=== PATIENT | male | born 1960 | race Caucasian/White ===

== ENCOUNTER → 2020-06-20 | Outpatient (CLI) | payer BC ==
--- NOTE | 2020-07-03 14:28 | REP ---
CAROTID DOPPLER ULTRASOUND CLINICAL: Symptoms related to atherosclerotic disease. TECHNIQUE: Real-time mccracken scale and color Doppler evaluation using linear high frequency transducer. FINDINGS: The bilateral carotid arteries demonstrates small minimal amounts of mixed atheromatous plaquing at the carotid bulbs. Normal laminar flow is appreciated without turbulence or evidence for stenosis. Arterial wave patterns are noted without significant spectral broadening. Normal flow direction noted to the bilateral vertebral arteries. PEAK FLOW VELOCITY ANALYSIS RIGHT LEFT ICA PSV 93.5 cm/s 68.6 cm/s ICA EDV 24.7 cm/s 14.7 cm/s ECA PSV 71.1 cm/s 77.5 cm/s CCA PSV 85.6 cm/s 70.4 cm/s ICA/CCA RATIO 1.09 0.97 IMPRESSION: Essentially normal age appropriate examination. Based on set standards, narrowing is in the normal/less than 50% range. MTDD
== END ==
LOC: M RAD 14:25
PROVIDERS: ATTEND Internal Medicine Cardiovascular Disease
DX: R09.89 Other specified symptoms and signs involving the circulatory and respiratory systems (principal); I73.9 Peripheral vascular disease, unspecified; G45.9 Transient cerebral ischemic attack, unspecified

== ENCOUNTER → 2020-10-02 | Outpatient (REF) | payer BC | LOC: M LAB REF 12:53 | PROVIDERS: ATTEND Podiatrist | DX: M79.671 Pain in right foot (principal); L03.125 Acute lymphangitis of right lower limb ==

== ENCOUNTER → 2022-11-03 | Outpatient (REF) | payer BC | LOC: M LAB REF 16:12 | PROVIDERS: ATTEND Internal Medicine | DX: Z13.89 Encounter for screening for other disorder (principal) ==

== ENCOUNTER → 2023-12-22 | Outpatient (CLI) | payer OTHER | LOC: M PLAIMG 14:36 | PROVIDERS: ATTEND Internal Medicine Cardiovascular Disease | DX: I47.19 Other supraventricular tachycardia (principal); I50.32 Chronic diastolic (congestive) heart failure; I71.21 Aneurysm of the ascending aorta, without rupture ==

== ENCOUNTER → 2024-06-30 | Outpatient (REF) | payer OTHER | LOC: M LAB REF 16:20 | PROVIDERS: ATTEND Internal Medicine | DX: M79.10 Myalgia, unspecified site (principal) ==

== ENCOUNTER → 2024-10-26 | Outpatient (REF) | payer OTHER | LOC: M LAB REF 16:39 | PROVIDERS: ATTEND Internal Medicine | DX: M10.9 Gout, unspecified (principal) ==